=== PATIENT | female | born 2000 | race American Indian/Alaskan Native ===

== ENCOUNTER 2021-12-25 21:06 | Inpatient (IN) | payer MEDICAID ==
[2021-12-25] MEDS ORDERED: LACTATED RINGERS 1,000 ML ONE ×2 (21:27→22:35)
[2021-12-25] MEDS ORDERED: METHYLERGONOVINE MALEATE 0.2 MG/ML VIAL IM PRN (22:58)
[2021-12-25] MEDS ORDERED: BUTORPHANOL 2 MG/1 ML INJ IV PRN (22:58)
[2021-12-25] MEDS ORDERED: miSOPROStol 25 MCG TAB VG ONE (22:58)
[2021-12-25] MEDS ORDERED: NalbUPHINE 10 MG/1 ML INJ IV PRN (22:58)
[2021-12-25] MEDS ORDERED: LOPERAMIDE 2 MG CAP PO PRN (22:58)
[2021-12-25] MEDS ORDERED: ePHEDrine SULFATE 50 MG/1 ML INJ IV PRN (22:58)
[2021-12-25] MEDS ORDERED: OXYTOCIN 10 UNIT/1 ML INJ IM PRN (22:58)
[2021-12-25] MEDS ORDERED: MINERAL OIL 30 ML ORAL LIQD PO PRN (22:58)
[2021-12-25] MEDS ORDERED: CARBOPROST TROMETHAMINE 250 MCG/1 ML INJ IM PRN (22:58)
[2021-12-25] MEDS ORDERED: ACETAMINOPHEN 325 MG TAB PO PRN (22:58)
[2021-12-25] MEDS ORDERED: miSOPROStol 200 MCG TAB PR PRN (22:58)
[2021-12-25] MEDS ORDERED: TERBUTALINE 1 MG/1 ML INJ SUB-Q PRN (22:58)
[2021-12-25] MEDS ORDERED: LIDOCAINE (2%) 20 MG/1 ML VIAL 20 ML MDV INFILTRATI ONE (22:58)
[2021-12-25] MEDS: LACTATED RINGERS 1,000 ML IV SCH (23:44)
[2021-12-25 23:46] LABS: Hematocrit 29.6 % (30.3-42.9); Hemoglobin 10.2 gm/dl (10.1-14.3); Mean Corpuscular HGB Conc 34 % (30-34); Mean Corpuscular Volume 73 fl (79-97); Platelet Count 192 K/mm3 (140-440); Red Blood Count 4.03 M/mm3 (3.65-5.03); Red Cell Distribution Width 14.1 % (13.2-15.2)
[2021-12-26] MEDS: LACTATED RINGERS 1,000 ML IV SCH ×2 (04:12→15:18)
[2021-12-26] MEDS: miSOPROStol 25 MCG TAB VG SCH ×2 (04:12→08:11)
--- NOTE | 2021-12-26 07:34 | Progress Note ---
Subjective Date of service: 12/26/21 Principal diagnosis: Anesthesia consult Interval history: As to evaluate patient for Labor Analgesia. Per ABIGAIL Lyons patient received Fentanyl @ 0715. Furthermore, patient is now complete. Objective - Constitutional Vitals: Vital Signs - 12hr 12/25/21 12/25/21 12/25/21 21:43 21:46 21:48 Pulse Rate 110 H 94 H 100 H Blood Pressure 110/56 O2 Sat by Pulse 99 98 Oximetry 12/25/21 12/25/21 12/25/21 21:53 21:58 22:03 Pulse Rate 96 H 99 H 103 H Blood Pressure O2 Sat by Pulse 98 97 98 Oximetry 12/25/21 12/25/21 12/25/21 22:08 22:13 22:18 Pulse Rate 100 H 90 88 Blood Pressure O2 Sat by Pulse 98 97 98 Oximetry 12/25/21 12/25/21 12/25/21 22:23 22:28 22:33 Pulse Rate 87 101 H 101 H Blood Pressure O2 Sat by Pulse 98 99 98 Oximetry 12/25/21 12/25/21 12/25/21 22:38 22:43 22:48 Pulse Rate 96 H 102 H 102 H Blood Pressure O2 Sat by Pulse 98 97 97 Oximetry 12/25/21 12/25/21 12/25/21 22:53 22:58 23:03 Pulse Rate 109 H 101 H 101 H Blood Pressure O2 Sat by Pulse 97 96 98 Oximetry 12/25/21 12/25/21 12/25/21 23:08 23:13 23:27 Pulse Rate 96 H 98 H 111 H Blood Pressure O2 Sat by Pulse 98 100 98 Oximetry 12/25/21 12/25/21 12/25/21 23:32 23:37 23:42 Pulse Rate 102 H 98 H 101 H Blood Pressure O2 Sat by Pulse 98 98 98 Oximetry 12/25/21 12/25/21 12/25/21 23:47 23:52 23:57 Pulse Rate 87 95 H 88 Blood Pressure O2 Sat by Pulse 98 98 97 Oximetry 12/26/21 12/26/21 12/26/21 00:02 00:07 00:12 Pulse Rate 92 H 98 H 95 H Blood Pressure O2 Sat by Pulse 98 98 97 Oximetry 12/26/21 12/26/21 12/26/21 00:17 00:22 00:27 Pulse Rate 102 H 95 H 90 Blood Pressure O2 Sat by Pulse 98 98 97 Oximetry 12/26/21 12/26/21 12/26/21 00:32 00:37 00:42 Pulse Rate 81 86 88 Blood Pressure 97/53 O2 Sat by Pulse 98 97 97 Oximetry 12/26/21 12/26/21 12/26/21 00:47 00:52 00:57 Pulse Rate 91 H 91 H 96 H Blood Pressure O2 Sat by Pulse 96 97 96 Oximetry 12/26/21 12/26/21 12/26/21 01:02 01:07 01:12 Pulse Rate 90 93 H 90 Blood Pressure O2 Sat by Pulse 96 96 96 Oximetry 12/26/21 12/26/21 12/26/21 01:17 01:22 01:27 Pulse Rate 88 87 88 Blood Pressure O2 Sat by Pulse 97 97 97 Oximetry 12/26/21 12/26/21 12/26/21 01:32 01:37 01:42 Pulse Rate 85 81 89 Blood Pressure 91/54 O2 Sat by Pulse 97 98 97 Oximetry 12/26/21 12/26/21 12/26/21 01:47 01:52 01:57 Pulse Rate 79 92 H 79 Blood Pressure O2 Sat by Pulse 98 97 98 Oximetry 12/26/21 12/26/21 12/26/21 02:02 02:07 02:12 Pulse Rate 88 89 89 Blood Pressure O2 Sat by Pulse 98 98 97 Oximetry 12/26/21 12/26/21 12/26/21 02:17 02:22 02:27 Pulse Rate 88 88 92 H Blood Pressure O2 Sat by Pulse 97 97 97 Oximetry 12/26/21 12/26/21 12/26/21 02:32 02:45 02:50 Pulse Rate 110 H 85 92 H Blood Pressure 93/55 O2 Sat by Pulse 98 99 98 Oximetry 12/26/21 12/26/21 12/26/21 02:55 03:00 03:05 Pulse Rate 100 H 86 88 Blood Pressure O2 Sat by Pulse 98 97 97 Oximetry 12/26/21 12/26/21 12/26/21 03:10 03:15 03:20 Pulse Rate 92 H 88 90 Blood Pressure O2 Sat by Pulse 97 97 97 Oximetry 12/26/21 12/26/21 12/26/21 03:25 03:30 03:32 Pulse Rate 89 92 H 88 Blood Pressure 76/47 O2 Sat by Pulse 97 97 Oximetry 12/26/21 12/26/21 12/26/21 03:34 03:35 03:38 Pulse Rate 80 92 H 98 H Blood Pressure 81/52 84/56 O2 Sat by Pulse 98 Oximetry 12/26/21 12/26/21 12/26/21 03:39 03:40 03:45 Pulse Rate 84 88 101 H Blood Pressure 91/59 O2 Sat by Pulse 97 98 Oximetry 12/26/21 12/26/21 12/26/21 03:47 03:50 03:55 Pulse Rate 93 H 83 80 Blood Pressure 95/59 O2 Sat by Pulse 97 97 Oximetry 12/26/21 12/26/21 12/26/21 04:00 04:09 04:14 Pulse Rate 86 86 Blood Pressure O2 Sat by Pulse 99 99 99 Oximetry 12/26/21 12/26/21 12/26/21 04:19 04:24 04:29 Pulse Rate 82 73 83 Blood Pressure O2 Sat by Pulse 98 98 98 Oximetry 12/26/21 12/26/21 12/26/21 04:34 04:39 04:44 Pulse Rate 79 86 91 H Blood Pressure O2 Sat by Pulse 98 97 98 Oximetry 12/26/21 12/26/21 12/26/21 04:49 04:54 04:59 Pulse Rate 92 H 85 75 Blood Pressure O2 Sat by Pulse 98 98 98 Oximetry 12/26/21 12/26/21 12/26/21 05:04 05:09 05:14 Pulse Rate 83 79 79 Blood Pressure O2 Sat by Pulse 97 98 97 Oximetry 12/26/21 12/26/21 12/26/21 05:19 05:24 05:29 Pulse Rate 82 89 91 H Blood Pressure O2 Sat by Pulse 98 97 97 Oximetry 12/26/21 12/26/21 12/26/21 05:34 05:39 05:44 Pulse Rate 85 86 107 H Blood Pressure O2 Sat by Pulse 98 97 99 Oximetry 12/26/21 12/26/21 12/26/21 05:51 05:56 06:01 Pulse Rate 57 L 84 80 Blood Pressure O2 Sat by Pulse 100 97 97 Oximetry 12/26/21 12/26/21 12/26/21 06:06 06:11 06:16 Pulse Rate 83 87 78 Blood Pressure O2 Sat by Pulse 97 97 98 Oximetry 12/26/21 12/26/21 12/26/21 06:21 06:26 06:31 Pulse Rate 81 84 91 H Blood Pressure O2 Sat by Pulse 98 97 97 Oximetry 12/26/21 12/26/21 12/26/21 06:36 06:41 06:46 Pulse Rate 82 92 H 98 H Blood Pressure O2 Sat by Pulse 97 97 97 Oximetry 12/26/21 12/26/21 12/26/21 06:51 06:56 07:01 Pulse Rate 95 H 95 H 94 H Blood Pressure O2 Sat by Pulse 97 99 98 Oximetry 12/26/21 12/26/21 12/26/21 07:06 07:11 07:16 Pulse Rate 89 92 H 76 Blood Pressure O2 Sat by Pulse 97 98 98 Oximetry 12/26/21 12/26/21 07:21 07:26 Pulse Rate 88 89 Blood Pressure O2 Sat by Pulse 98 98 Oximetry - Labs CBC & Chem 7: 12/25/21 22:32 Labs: Abnormal lab results 12/25/21 Range/Units 22:32 Hct 29.6 L (30.3-42.9) % MCV 73 L (79-97) fl MCH 25 L (28-32) pg
[2021-12-26] MEDS ORDERED: OXYTOCIN DRIP 30,000 MILLIUNITS/500 ML BAG IV ONE (18:33)
--- NOTE | 2021-12-26 20:18 | History and Physical Report ---
History of Present Illness Date of examination: 12/26/21 Date of admission: 12/25/21 21:06 Chief complaint: I am here for my induction History of present illness: Patient is a 21-year-old 1 para 0 who presents for induction secondary to IUGR at 39-3/7 weeks, with EDC 12/28/21. She has had a course complicated by inconsistent care with late presentation and gaps in care however she presented to [facility] for [facility]. She is GBS negative. At approximately 26 weeks and continued her care there Past History Past Medical History: no pertinent history Past Surgical History: no surgical history Family/Genetic History: none Social history: single, lives with family - Obstetrical History Expected Date of Delivery: 12/28/21 Actual Gestation: 39 Week(s) 5 Day(s) : 1 Medications and Allergies Allergies Allergy/AdvReac Type Severity Reaction Status Date / Time seafood Allergy Unknown Uncoded 12/25/21 22:58 Active Meds: Active Medications Acetaminophen (Acetaminophen 325 Mg Tab) 650 mg PO Q4H PRN PRN Reason: Pain, Mild (1-3) Butorphanol Tartrate (Butorphanol 2 Mg/1 Ml Inj) 1 mg IV Q2H PRN PRN Reason: Pain, Moderate(4-6) LABOR PAIN Carboprost Tromethamine (Carboprost Tromethamine 250 Mcg/1 Ml Inj) 250 mcg IM ONCE PRN PRN Reason: Uterine Bleeding Ephedrine Sulfate (Ephedrine Sulfate 50 Mg/1 Ml Inj) 10 mg IV Q2M PRN PRN Reason: Hypotension Lactated Ringer's (Lactated Ringers) 1,000 mls @ 125 mls/hr IV DIRECT LUIS Last Admin: 12/26/21 15:18 Dose: 125 mls/hr Oxytocin/Sodium Chloride (Pitocin/Ns 30 Unit/500ml) 30 units in 500 mls @ 40 mls/hr IV TITR LUIS; Protocol Loperamide HCl (Loperamide 2 Mg Cap) 2 mg PO ONCE PRN PRN Reason: give with Hemabate Methylergonovine Maleate (Methylergonovine Maleate 0.2 Mg/Ml Vial) 0.2 mg IM ONCE PRN PRN Reason: Uterine Bleeding Mineral Oil (Mineral Oil 30 Ml Oral Liqd) 30 ml PO QHS PRN PRN Reason: Constipation Misoprostol (Misoprostol 200 Mcg Tab) 800 mcg RI ONCE PRN PRN Reason: Uterine Bleeding Misoprostol (Misoprostol 25 Mcg Tab) 25 mcg VG Q4H LUIS Last Admin: 12/26/21 08:11 Dose: 25 mcg Nalbuphine HCl (Nalbuphine 10 Mg/1 Ml Inj) 10 mg IV Q2H PRN PRN Reason: Pain, Moderate (4-6) Oxytocin (Oxytocin 10 Unit/1 Ml Inj) 10 unit IM ONCE PRN PRN Reason: Uterine Bleeding Terbutaline Sulfate (Terbutaline 1 Mg/1 Ml Inj) 0.25 mg SUB-Q ONCE PRN PRN Reason: Hyperstimulation/Hypertonicity Review of Systems All systems: negative Constitutional: weight loss Gastrointestinal: abdominal pain Genitourinary: pelvic pain, contractions - Vital Signs Vital signs: Vital Signs Pulse Pulse Ox 110 H 99 12/25/21 21:43 12/25/21 21:43 Temp Pulse Resp BP Pulse Ox 98.3 F 88 16 98/56 99 12/26/21 19:29 12/26/21 20:11 12/26/21 19:29 12/26/21 19:32 12/26/21 20:11 - Physical Exam Breasts: Cardiovascular: Regular rate, Normal S1, Normal S2 Lungs: Positive: Clear to auscultation, Normal air movement Abdomen: Positive: normal appearance, soft, normal bowel sounds. Negative: distention, tenderness Genitourinary (Female): Positive: normal external genitalia, normal perenium Vulva: both: normal Vagina: Positive: normal moisture. Negative: discharge Cervix: Negative: lesion, discharge Uterus: Positive: normal size, normal contour Adnexa: both: normal Anus/Rectum: Positive: normal perianal skin, heme negative. Negative: rectal mass, hemorrhoids Extremities: Deep Tendon Reflex Grade: Normal +2 - Obstetrical FHR: auscultation normal Cervical Dilatation: 0 station: -3 Results Result Diagrams: 12/25/21 22:32 Abnormal lab results 12/25/21 Range/Units 22:32 Hct 29.6 L (30.3-42.9) % MCV 73 L (79-97) fl MCH 25 L (28-32) pg All other labs normal. Assessment and Plan IUP at 39-4/7 weeks here for induction secondary to IUGR will admit for same. Will place Cytotec x4 on tonight and into tomorrow. Will begin Pitocin when able. Anticipate .
[2021-12-26] MEDS ORDERED: OXYTOCIN DRIP 30 UNITS/500 ML BAG IV SCH (23:00)
[2021-12-26] MEDS ORDERED: LIDOCAINE (2%) 20 MG/1 ML VIAL 20 ML MDV INFILTRATI ONE (23:04)
--- NOTE | 2021-12-26 23:58 | Procedure Note ---
OB Delivery Note - Delivery Date of Delivery: 12/26/21 Surgeon: MARK CASANOVA Estimated blood loss: 300cc - Vaginal Delivery presentation: vertex Delivery position: OA Intrapartum events: none Delivery induction: oxytocin Delivery augmentation: pitocin Delivery monitor: external FHT, external uterine Route of delivery: Delivery placenta: spontaneous Delivery cord: 3 umbilical vessels Episiotomy: none Delivery laceration: 2nd degree Delivery repair: vicryl Anesthesia: local Delivery comments: Viable male delivered over intact perineum at 1152 p.m. had no evidence nuchal cord . had spontaneous cry and was placed on maternal abdomen. Cord was clamped and cut when finished pulsating. Weight 6 pounds 3 ounces. Apgars 8/9. Placenta was delivered spontaneously and intact with three-vessel cord. Patient had a second-degree laceration that was repaired with 2-0 Vicryl. Excellent hemostasis. Patient tolerated procedure well. - Infant A at 1 minute: 8 at 5 minutes: 9 Infant Gender: Male
[2021-12-27] MEDS ORDERED: WITCH HAZEL/ GLYCERIN PAD TP PRN (01:55)
[2021-12-27] MEDS ORDERED: diphenhydrAMINE 25 MG CAP PO PRN (01:55)
[2021-12-27] MEDS ORDERED: LANOLIN/ZINC/DIMETHICONE (LANSINOH) 7 GM TP PRN (01:55)
[2021-12-27] MEDS ORDERED: PROMETHAZINE 25 MG RECT SUPP PR PRN (01:55)
[2021-12-27] MEDS ORDERED: HYDROcodone/ACETAMINOPHEN 5-325 MG TAB PO PRN (01:55)
[2021-12-27] MEDS ORDERED: ONDANSETRON 4 MG/2 ML INJ IV PRN (01:55)
[2021-12-27] MEDS ORDERED: PROMETHAZINE 25 MG TAB PO PRN (01:55)
[2021-12-27] MEDS ORDERED: MAGNESIUM HYDROXIDE (MOM) ORAL LIQD UDC PO PRN (01:55)
[2021-12-27] MEDS ORDERED: ACETAMINOPHEN 325 MG TAB PO PRN (01:55)
[2021-12-27] MEDS: IBUPROFEN 800 MG TAB PO SCH ×3 (05:57→23:48)
[2021-12-27 13:14] LABS: Hematocrit 33.3 % (30.3-42.9); Hemoglobin 10.6 gm/dl (10.1-14.3)
[2021-12-27] MEDS: PRENATAL VIT27-FE FUMARATE-FOLIC ACID VIT TAB PO SCH (14:53)
[2021-12-27] MEDS: FERROUS SULFATE 325 MG TAB PO SCH ×2 (14:54→21:53)
[2021-12-27] MEDS: DOCUSATE SODIUM 100 MG CAP PO SCH ×2 (14:54→21:53)
[2021-12-27] MEDS ORDERED: BENZOCAINE/MENTHOL 20/0.5% TOP SPRAY 56 GM TP PRN (15:26)
--- NOTE | 2021-12-27 17:35 | Progress Note ---
Subjective - Subjective Date of service: 12/28/21 Interval history: Patient is a 21-year-old 1 para 0 who presents for induction secondary to IUGR at 39-3/7 weeks, with EDC 12/28/21. She has had a course complicated by inconsistent care with late presentation and gaps in care however she presented to [facility] for you. She is GBS negative. At approximately 26 weeks and continued her care there Patient reports: appetite normal, voiding normally, pain well controlled, ambulating normally [place]: doing well Objective - Vital Signs Latest vital signs: Vital Signs Temp Pulse Resp BP BP Pulse Ox Pulse Ox 12/27/21 16:49 98.4 F 106 H 18 95/59 97 12/27/21 12:47 97.8 F 94 H 18 93/58 98 12/27/21 08:34 98.4 F 92 H 17 92/56 96 12/27/21 05:57 18 12/27/21 05:54 98.8 F 97 H 18 97/53 95 12/27/21 02:02 99 12/27/21 01:29 98.2 F 69 18 98/55 98 12/27/21 00:52 83 99 12/27/21 00:47 87 98 12/27/21 00:42 87 112/72 98 12/27/21 00:37 94 H 98 12/27/21 00:32 87 98 12/27/21 00:29 84 102/58 12/27/21 00:27 91 H 99 12/27/21 00:22 88 97 12/27/21 00:17 77 98 12/27/21 00:13 87 116/63 12/27/21 00:12 88 96 12/27/21 00:07 86 98 12/27/21 00:02 96 H 99 12/26/21 23:57 68 99 12/26/21 23:56 77 107/60 12/26/21 23:52 86 199/139 99 12/26/21 23:47 94 H 100 12/26/21 23:42 100 H 99 12/26/21 23:37 81 100 12/26/21 23:32 90 99 12/26/21 23:30 77 122/58 12/26/21 23:27 71 98 12/26/21 23:22 89 99 12/26/21 23:17 89 99 12/26/21 23:12 77 97 12/26/21 23:07 94 H 100 12/26/21 23:02 97 H 100 12/26/21 22:57 77 98 12/26/21 22:52 98 H 96 12/26/21 22:47 85 98 12/26/21 22:42 101 H 99 12/26/21 22:37 84 100 12/26/21 22:32 95 H 98 12/26/21 22:27 106 H 99 12/26/21 22:22 92 H 99 12/26/21 22:17 86 100 12/26/21 22:12 106 H 99 12/26/21 22:07 99 H 99 12/26/21 22:02 100 H 98 12/26/21 21:57 100 H 100 12/26/21 21:52 104 H 96 12/26/21 21:40 98.2 F 12/26/21 21:38 92 H 99 12/26/21 21:33 91 H 99 12/26/21 21:28 100 H 99 12/26/21 21:23 76 99 12/26/21 21:18 86 99 12/26/21 21:13 76 99 12/26/21 21:08 70 99 12/26/21 21:03 80 98 12/26/21 20:58 75 99 12/26/21 20:52 82 99 12/26/21 20:47 87 99 12/26/21 20:26 80 99 12/26/21 20:21 80 98 12/26/21 20:16 78 99 12/26/21 20:11 88 99 12/26/21 20:06 75 98 12/26/21 20:01 74 98 12/26/21 19:56 79 99 12/26/21 19:51 89 99 12/26/21 19:46 96 H 99 12/26/21 19:33 79 99 02 19:32 77 98/56 12/26/21 19:30 99 12/26/21 19:29 98.3 F 77 16 98/56 97 12/26/21 19:28 75 98 12/26/21 19:23 84 97 12/26/21 19:18 77 98 12/26/21 19:13 84 98 12/26/21 19:08 81 98 12/26/21 19:03 77 98 0224/22 18:58 83 99 12/26/21 18:45 85 98 12/26/21 18:40 91 H 99 12/26/21 18:35 96 H 98 12/26/21 18:30 86 98 12/26/21 18:25 80 99 12/26/21 18:20 86 98 12/26/21 18:15 83 98 12/26/21 18:10 85 99 12/26/21 18:05 89 99 12/26/21 17:56 85 99 12/26/21 17:51 82 97 12/26/21 17:46 88 98 12/26/21 17:41 85 98 12/26/21 17:36 89 99 Intake and Output 12/27/21 12/27/21 12/27/21 06:59 14:59 22:59 Intake Total 600 1080 720 Output Total 1400 Balance -800 1080 720 Intake: Oral 240 480 240 Intake, Free Water 360 600 480 Output: Urine 1400 Void 1400 Other: Total, Intake Amount 240 360 240 Total, Output Amount 400 # Voids Void 2 2 Estimated Blood Loss 250
--- NOTE | 2021-12-27 17:36 | Discharge Summary ---
Providers - Providers Date of Admission: 12/25/21 21:06 Date of discharge: 12/28/21 Attending physician: MARK CASANOVA 12/27/21 08:31 Consult to Case Management [CONS] Routine Services Needed at Discharge: Other Notified:: Yes Phone number called:: [phone] Was contact made?: Yes Primary care physician: MARK CASANOVA Hospitalization Reason for admission: induction of labor Delivery: Laceration: 2nd degree Other procedures: none complications: none Discharge diagnosis: IUP at term delivered [place] baby: male Condition at discharge: Good Disposition: HOME / SELF CARE / HOMELESS Plan - Discharge Medications Prescriptions: Ferrous Sulfate [Feosol 325 MG tab] 325 mg PO BID #60 tablet Ibuprofen [Motrin] 800 mg PO Q8HR PRN #40 tablet PRN Reason: Pain, Mild (1-3) HYDROcodone/APAP 5-325 [[place] 5/325] 1 each PO Q6HR PRN #15 tablet PRN Reason: Pain - Provider Discharge Summary Activity: routine, no sex for 6 weeks, no heavy lifting 4 weeks, no strenuous exercise Diet: routine Instructions: routine Additional instructions: [] Smoking cessation referral if applicable(refer to patient education folder for contact #) [] Refer to [facility]'s [facility] Booklet Call your doctor immediately for: * Fever > 100.5 * Heavy vaginal bleeding ( >1 pad per hour) * Severe persistent headache * Shortness of breath * Reddened, hot, painful area to leg or breast * Drainage or odor from incision. * Keep incision clean and dry at all times and follow doctor's instructions regarding bathing/showering - Follow up plan Follow up: MARK CASANOVA MD [Primary Care Provider] - 6 Weeks
[2021-12-28] MEDS: IBUPROFEN 800 MG TAB PO SCH (05:23)
[2021-12-28 09:18] VITALS: BP 103/59
[2021-12-28] MEDS: DOCUSATE SODIUM 100 MG CAP PO SCH (10:03)
[2021-12-28] MEDS: FERROUS SULFATE 325 MG TAB PO SCH (10:03)
[2021-12-28] MEDS: PRENATAL VIT27-FE FUMARATE-FOLIC ACID VIT TAB PO SCH (10:06)
== END 2021-12-28 10:39 | disposition home or self-care (01) | DRG 775 ==
LOC: LD 21:06 → OB 12-27 01:49
PROVIDERS: ADMIT Obstetrics & Gynecology; ATTEND Obstetrics & Gynecology
PROC: 10E0XZZ Delivery of Products of Conception, External Approach (ICD-10-PCS; principal; 2021-12-26)
PROC: 0KQM0ZZ Repair Perineum Muscle, Open Approach (ICD-10-PCS; 2021-12-26)
PROC: 3E033VJ Introduction of Other Hormone into Peripheral Vein, Percutaneous Approach (ICD-10-PCS; 2021-12-26)
DX: O36.5930 Maternal care for other known or suspected poor fetal growth, third trimester, not applicable or unspecified (principal); Z3A.39 39 weeks gestation of pregnancy; Z37.0 Single live birth; Z20.822 Contact with and (suspected) exposure to COVID-19; O70.1 Second degree perineal laceration during delivery; Z91.013 Allergy to seafood
CPT/HCPCS: 36415; 85014; 85018; 85027; 86592; 86850; 86900; 86901; G0378; J3490; J0595; J2590; J7120; U0003